=== PATIENT | female | born 1970 | race Caucasian/White ===

== ENCOUNTER 2016-07-30 13:47 | Emergency (ER) | END 2016-07-30 15:30 | disposition home or self-care (01) | DX: H66.91 Otitis media, unspecified, right ear (principal); J06.9 Acute upper respiratory infection, unspecified; I10 Essential (primary) hypertension; Z79.82 Long term (current) use of aspirin ==

== ENCOUNTER 2018-06-25 14:04 | Emergency (ER) | payer MEDICAID ==
[~2018-06-25] VITALS: Ht 167.6 cm; Wt 115.5 kg
[~2018-06-25 14:04] MED LIST: ACET500C5 PO; ASPI-831 PO; AZIT250T PO; AZIT250T13 PO; BENA40TA54 PO; BENZ-6 PO; CETI10CA PO; CIPR500T4 PO; FLUO20CA22 PO; HYDR25TA6 PO; NITR-58 PO; PHEN-537 PO; [UNRECOGNIZED DRUG - CODE] PO
[2018-06-25 14:13] VITALS: BP 184/86; PULSE 91; RESP 20; Ht 167.6 cm; Wt 115.5 kg
[2018-06-25] MEDS ORDERED: PROM5SYR2 PO (16:18)
--- NOTE | 2018-06-25 16:20 | ERD ---
ER Documentation Chief Complaint Chief Complaint cough, phlegm, upper back pain x 2 weeks HPI 47-year-old female here complaining of cough with green colored phlegm as well as sore throat for the past 5 days. No fever. Her symptoms are worse at night. No nausea vomiting or diarrhea. No chest pain palpitations shortness of breath. She has not taken any medications for her symptoms. ROS All systems reviewed and are negative except as per history of present illness. Medications Home Meds Active Scripts Promethazine HCl/Codeine (Prometh-Codein 6.25-10 mg/5 ml) 5 Ml Syrup, 5 ML PO Q6, #120 ML Prov:DESIRE LOUISE PA-C 06/25/18 Cetirizine Hcl* (Zyrtec*) 10 Mg Capsule, 10 MG PO DAILY, #30 TAB.CHEW Prov:SANTIAGO MEZA PA-C 07/30/16 Benzonatate* (Tessalon Perle*) 100 Mg Capsule, 100 MG PO Q8H PRN for COUGH for 14 Days, CAP Prov:SANTIAGO MEZA PA-C 07/30/16 Acetaminophen* (Tylophen*) 500 Mg Capsule, 1 CAP PO Q6H PRN for PAIN AND OR ELEVATED TEMP, #20 CAP Prov:SANTIAGO MEZA PA-C 07/30/16 Azithromycin* (Zithromax*) 250 Mg Tablet, 250 MG PO .ZPACK DIRECTED, #6 TAB TAKE 500 MG (2 TABS) THE FIRST DAY THEN 250 MG (1 TAB) DAYS 2-5 Prov:SANTIAGO MEZA PA-C 07/30/16 Phenazopyridine Hcl* (Pyridium*) 100 Mg Tab, 100 MG PO TID for URINARY PAIN for 2 Days, TAB Prov:BUTCH MATA I. [employer]ED OPERATOR 05/05/15 Nitrofurantoin Monohyd Macrocr* (Macrobid*) 100 Mg Capsr, 100 MG PO BID for 14 Days, CAP Prov:BUTCH MATA I. M[employer] SK[employer]ED OPERATOR 05/05/15 Reported Medications Azithromycin* (Azithromycin*) 250 Mg Tablet, PO 09/27/13 Ranitidine Hcl (WAL-KAREN 150) 150 Mg Tablet, PO BID 09/27/13 Hydrochlorothiazide* (Hydrochlorothiazide*) 25 Mg Tab, PO DAILY 09/27/13 Fluoxetine Hcl* (Fluoxetine Hcl*) 20 Mg Capsule, PO DAILY 09/27/13 Ciprofloxacin Hcl* (Ciprofloxacin Hcl*) 500 Mg Tablet, PO BID 09/27/13 Aspirin (Aspirin) 81 Mg Chew, PO DAILY 09/27/13 Benazepril Hcl* (Lotensin*) 40 Mg Tablet, 20 MG PO DAILY 09/27/13 Allergies Allergies: Coded Allergies: No Known Allergy (Verified , 09/26/14) PMhx/Soc History of Surgery: Yes (Gall bladder removal) Anesthesia Reaction: No Hx Neurological Disorder: No Hx Respiratory Disorders: Yes (Bronchitis) Hx Cardiac Disorders: Yes (hypertension; high cholesterol) Hx Psychiatric Problems: No Hx Miscellaneous Medical Probl: Yes Hx Alcohol Use: Yes (SOCIALLY) Hx Substance Use: No Hx Tobacco Use: No FmHx Family History: No diabetes Physical Exam Vitals Vital Signs Date Temp Pulse Resp B/P (MAP) Pulse Ox O2 O2 Flow FiO2 Time Delivery Rate 06/25/18 97.3 91 20 184/86 96 14:13 (118) Physical Exam INITIAL VITAL SIGNS: Reviewed by me GENERAL: Awake, alert and oriented x 4, well appearing, nontoxic, speaking in full sentences. No acute distress HEAD: Atraumatic NECK: Supple. No masses. Full range of motion. No meningismus. No midline tenderness. NOSE: Normal nose. THROAT: No tonilar erythema or edema. No exudates. Uvula midline. No kissing tonsils. RESPIRATORY: Clear to auscultation bilaterally. Symmetric chest wall rise. No wheezing or rales. No accessory muscle use. CV: Regular rate and rhythm. No murmurs, rubs, or gallops. Procedures/MDM 47-year-old female is here with cough for 5-6 days. She is afebrile. Her lungs are clear. I doubt she has pneumonia. This is likely a viral infection. She is given prescription for cough syrup. Patient counseled regarding my diagnostic impression and care plan. Prior to discharge all questions answered. Pt agrees with treatment plan and understands strict return precautions. Pt is instructed to follow up with primary care provider within 24-48 hours. Precautionary instructions provided including instructions to return to the ER if not improving or for any worsening or changing symptoms or concerns. Departure Diagnosis: Primary Impression: Bronchitis Condition: Stable Patient Instructions: Bronchitis, No Antibiotic (Adult) Additional Instructions: Call your primary care doctor TOMORROW for an appointment during the next 1-2 days.See the doctor sooner or return here if your condition worsens before your appointment time. DESIRE LOUISE PA-C Jun 25, 2018 16:20
== END 2018-06-25 16:41 | disposition home or self-care (01) ==
LOC: FTE 14:04
DX: J40 Bronchitis, not specified as acute or chronic (principal); I10 Essential (primary) hypertension; Z79.82 Long term (current) use of aspirin
CPT/HCPCS: 99283

== ENCOUNTER 2018-08-22 17:55 | Emergency (ER) | payer MEDICAID ==
[~2018-08-22] VITALS: Wt 118.0 kg
[~2018-08-22 17:55] MED LIST changes: +PROM5SYR2 PO
[2018-08-22] MEDS ORDERED: ONDANSETRON 4 MG INJ IV STA (19:01)
[2018-08-22] MEDS ORDERED: morphine 4 MG/ML VIAL IV STA (19:01)
--- NOTE | 2018-08-22 19:57 | ERD ---
ER Documentation Chief Complaint Chief Complaint BILATERAL FLANK PAIN X 1 MONTH WITH DYSURIA HPI This is a 47-year-old female who is here for left-sided back pain for 1 month she says that she has sharp left flank pain at the lumbar paraspinal region without radiation off and on for 1 month. She says she has had some dysuria over the past 2-3 days. No fever no hematuria no nausea vomiting or diarrhea.'s the pain is sometimes worse with movement ROS All systems reviewed and are negative except as per history of present illness. Medications Home Meds Active Scripts Promethazine HCl/Codeine (Prometh-Codein 6.25-10 mg/5 ml) 5 Ml Syrup, 5 ML PO Q6, #120 ML Prov:DESIRE LOUISE PA-C 06/25/18 Cetirizine Hcl* (Zyrtec*) 10 Mg Capsule, 10 MG PO DAILY, #30 TAB.CHEW Prov:SANTIAGO MEZA PA-C 07/30/16 Benzonatate* (Tessalon Perle*) 100 Mg Capsule, 100 MG PO Q8H PRN for COUGH for 14 Days, CAP Prov:SANTIAGO MEZA PA-C 07/30/16 Acetaminophen* (Tylophen*) 500 Mg Capsule, 1 CAP PO Q6H PRN for PAIN AND OR ELEVATED TEMP, #20 CAP Prov:SANTIAGO MEZA PA-C 07/30/16 Azithromycin* (Zithromax*) 250 Mg Tablet, 250 MG PO .ZPACK DIRECTED, #6 TAB TAKE 500 MG (2 TABS) THE FIRST DAY THEN 250 MG (1 TAB) DAYS 2-5 Prov:SANTIAGO MEZA PA-C 07/30/16 Phenazopyridine Hcl* (Pyridium*) 100 Mg Tab, 100 MG PO TID for URINARY PAIN for 2 Days, TAB Prov:BUTCH MATA NP 05/05/15 Nitrofurantoin Monohyd Macrocr* (Macrobid*) 100 Mg Capsr, 100 MG PO BID for 14 Days, CAP Prov:BUTCH MATA I. [employer] 05/05/15 Reported Medications Azithromycin* (Azithromycin*) 250 Mg Tablet, PO 09/27/13 Ranitidine Hcl (WAL-KAREN 150) 150 Mg Tablet, PO BID 09/27/13 Hydrochlorothiazide* (Hydrochlorothiazide*) 25 Mg Tab, PO DAILY 09/27/13 Fluoxetine Hcl* (Fluoxetine Hcl*) 20 Mg Capsule, PO DAILY 09/27/13 Ciprofloxacin Hcl* (Ciprofloxacin Hcl*) 500 Mg Tablet, PO BID 09/27/13 Aspirin (Aspirin) 81 Mg Chew, PO DAILY 09/27/13 Benazepril Hcl* (Lotensin*) 40 Mg Tablet, 20 MG PO DAILY 09/27/13 Allergies Allergies: Coded Allergies: No Known Allergy (Verified , 09/26/14) PMhx/Soc History of Surgery: Yes (Gall bladder removal) Anesthesia Reaction: No Hx Neurological Disorder: No Hx Respiratory Disorders: Yes (Bronchitis) Hx Cardiac Disorders: Yes (hypertension; high cholesterol) Hx Psychiatric Problems: No Hx Miscellaneous Medical Probl: No Hx Alcohol Use: Yes (SOCIALLY) Hx Substance Use: No Hx Tobacco Use: No Smoking Status: Never smoker FmHx Family History: No coronary disease Physical Exam Vitals Vital Signs Date Temp Pulse Resp B/P (MAP) Pulse Ox O2 O2 Flow FiO2 Time Delivery Rate 08/22/18 82 16 139/78 98 Room Air 18:45 (98) 08/22/18 98.0 78 18 170/77 99 17:58 (108) Physical Exam Const: Well-developed, well-nourished Head: Atraumatic, normocephalic Eyes: Normal Conjunctiva, PERRLA, EOMI, normal sclera, no nystagmus ENT: Normal External Ears, Nose and Mouth, moist mucus membranes. Neck: Full range of motion. No meningismus, no lymphadenopathy. Resp: Clear to auscultation bilaterally, no wheezing, rhonchi, rales Cardio: Regular rate and rhythm, no murmurs, S1 S2 present Abd: Soft, non tender x 4, non distended. Normal bowel sounds, no guarding or rebound, no pulsitile abdominal masses or bruits Skin: No petechiae or rashes, no ecchymosis , no maculopapular rash Back: Mild left low back pain Ext: No cyanosis, or edema, FROM x 4, normal inspection, neurovascularly intact x 4 Neur: Awake and alert, STR 5/5 x 4, sensation intact x 4, no focal findings, cerebellum intact Psych: Normal Mood and Affect Result Diagram: 08/22/187 08/22/18 1907 Results 24 hrs Laboratory Tests Test 08/22/18 19:07 08/22/18 19:18 White Blood Count 11.6 10^3/ul Red Blood Count 4.23 10^6/ul Hemoglobin 11.8 g/dl Hematocrit 36.9 % Mean Corpuscular Volume 87.2 fl Mean Corpuscular Hemoglobin 27.9 pg Mean Corpuscular Hemoglobin Concent 32.0 g/dl Red Cell Distribution Width 14.8 % Platelet Count 310 10^3/UL Mean Platelet Volume 11.0 fl Immature Granulocytes % 0.400 % Neutrophils % 63.4 % Lymphocytes % 25.8 % Monocytes % 8.2 % Eosinophils % 1.7 % Basophils % 0.5 % Nucleated Red Blood Cells % 0.0 /100WBC Immature Granulocytes # 0.050 10^3/ul Neutrophils # 7.3 10^3/ul Lymphocytes # 3.0 10^3/ul Monocytes # 1.0 10^3/ul Eosinophils # 0.2 10^3/ul Basophils # 0.1 10^3/ul Nucleated Red Blood Cells # 0.0 10^3/ul Urine Color YELLOW Urine Clarity SLIGHTLY CLOUDY Urine pH 7.0 Urine Specific [place] 1.012 Urine Ketones NEGATIVE mg/dL Urine Nitrite NEGATIVE mg/dL Urine Bilirubin NEGATIVE mg/dL Urine Urobilinogen NEGATIVE mg/dL Urine Leukocyte Esterase 1+ Carri/ul Urine Microscopic RBC 0 /HPF Urine Microscopic WBC 6 /HPF Urine Squamous Epithelial Cells FEW /HPF Urine Hemoglobin NEGATIVE mg/dL Urine Glucose NEGATIVE mg/dL Urine Total Protein NEGATIVE mg/dl Sodium Level 136 mmol/L Potassium Level 4.0 mmol/L Chloride Level 103 mmol/L Carbon Dioxide Level 27 mmol/L Anion Gap 6 Blood Urea Nitrogen 16 mg/dl Creatinine 0.60 mg/dl Est Glomerular Filtrat Rate mL/min > 60 mL/min Glucose Level 133 mg/dl Calcium Level 9.4 mg/dl Serum HCG, Qualitative NEGATIVE POC Beta HCG, Qualitative NEGATIVE Current Medications Medications Dose Sig/Marli Start Time Status Last (Trade) Ordered Route PRN Stop Time Admin Dose Reason Admin Morphine 4 mg ONCE STAT 08/22/18 DC Sulfate IV 19:01 (morphine) 08/22/18 19:02 Ondansetron 4 mg ONCE STAT 08/22/18 DC HCl (Zofran IV 19:01 Inj) 08/22/18 19:02 Procedures/MDM MR #: [id number] DOS: 08/22/18 1901 Ordering MD: LETHA LI DO Location: E/R Room/Bed: PROCEDURE: CT SCAN OF THE ABDOMEN AND PELVIS NON CONTRAST CLINICAL INDICATION: Left flank pain, dysuria TECHNIQUE: Utilizing the multi-slice spiral CT scanner, Transaxial images were obtained through the abdomen and pelvis without contrast. Additional sagittal, coronal, MPR images were also obtained. DICOM images are available Radiation Dose: CTDI vol 23.79 mGy, DLP 1395.90 mGy-cm. One of more of the following dose reduction techniques were utilized: -automatic exposure control -adjustment of the mA and/or kV according to patient size -Use of iterative reconstruction technique Contrast used: None COMPARISON: CT chest 09/27/2013 FINDINGS: Limited slices through the lung bases are clear. Osteophytic spurring of the lower dorsal spine noted. Small retrocardiac hiatal hernia seen. Large amount of intra and extra abdominal fat is noted. CT Abdomen Fatty liver, distended stomach, normal spleen, atrophic pancreas, cholecystectomy clips are seen. Left adrenal adenoma measures 2.3 cm and is slightly enlarged from prior study. Fatty component suggestive of myelolipoma. Kidneys do not demonstrate any intra renal stones . Mild left hydroureter seen in presence of a distended bladder. No perinephric fat stranding seen. Bowel gas pattern appears nonspecific with moderate colonic stool. No free air or ascites noted. No significant retroperitoneal adenopathy seen. CT pelvis: Uterus, bladder, rectosigmoid colon appears unremarkable. No pelvic ascites noted. IMPRESSION: Fatty liver Moderate colonic stool with no free air or ascites noted. No intra renal stones noted. Mild left hydroureter seen in presence of a distended bladder, no stones identified. RPTAT: AAOO Physician Bronson Date Time Electronically viewed and signed by Physician Bronson on 08/22/2018 20:34 MB/ CC: LETHA LI DO [id number] Patient has stable labs other than a mild UTI. CAT scan shows no significant pathology other than some constipation which I would treat. Patient's pain is likely chronic in nature due to some musculoskeletal pain. Will discharge home with prescription for Macrobid and some pain medication as well as MiraLAX for her constipation Patient feels much better at this time, and vital signs are normal, symptoms have improved. I did give strict instructions to return to the ED if symptoms continue or worsen, patient will otherwise follow-up with primary care phys elliottan. Patient understood instructions and agreed to plan. Disclaimer: Inadvertent spelling and grammatical errors are likely due to EHR/dictation software use and do not reflect on the overall quality of patient care. Also, please note that the electronic time recorded on this note does not necessarily reflect the actual time of the patient encounter. Departure Diagnosis: Primary Impression: Flank pain Additional Impressions: UTI (lower urinary tract infection) Constipation Constipation type: unspecified constipation type Qualified Codes: K59.00 - Constipation, unspecified Condition: Stable LETHA LI DO Aug 22, 2018 19:57
[2018-08-22] MEDS ORDERED: NITR-58 PO (21:35)
[2018-08-22] MEDS ORDERED: METH500T PO (21:35)
[2018-08-22] MEDS ORDERED: IBUP800T48 PO (21:35)
[2018-08-22 22:10] VITALS: BP 108/64; PULSE 78; RESP 16
== END 2018-08-22 22:24 | disposition home or self-care (01) ==
LOC: E/R 17:55
DX: N39.0 Urinary tract infection, site not specified (principal); K59.00 Constipation, unspecified; I10 Essential (primary) hypertension; Z79.82 Long term (current) use of aspirin
CPT/HCPCS: 36415; 74176; 80048; 81001; 81025; 84703; 85025; Z7502; Z7610

== ENCOUNTER 2019-02-15 20:36 | Emergency (ER) | payer SELFPAY ==
[~2019-02-15] VITALS: Ht 162.6 cm; Wt 117.5 kg
[~2019-02-15 20:36] MED LIST changes: +IBUP800T48 PO; +METH500T PO
[2019-02-15 20:41] VITALS: BP 149/69; PULSE 90; RESP 18; Ht 162.6 cm; Wt 117.5 kg
== END 2019-02-15 22:42 | disposition left against medical advice (07) ==
LOC: E/R 20:36
DX: Z53.21 Procedure and treatment not carried out due to patient leaving prior to being seen by health care provider (principal)